=== PATIENT | male | born 1985 | race Caucasian/White ===

== ENCOUNTER → 2021-02-07 | Outpatient (CLI) | payer OTHER | LOC: KOH-I 12:30 | DX: S32.402A Unspecified fracture of left acetabulum, initial encounter for closed fracture (principal); M23.42 Loose body in knee, left knee; S82.092A Other fracture of left patella, initial encounter for closed fracture; S82.145A Nondisplaced bicondylar fracture of left tibia, initial encounter for closed fracture; K22.8 Other specified diseases of esophagus | CPT/HCPCS: 73721; 74176 ==